=== PATIENT | female | born 1950 | race Caucasian/White ===

== ENCOUNTER 2016-10-10 21:05 | Emergency (ER) | payer OTHER ==
[~2016-10-10] VITALS: Ht 165.1 cm; Wt 68.0 kg
--- NOTE | 2016-10-10 21:55 | ED GI/GU/ABDOMINAL COMPLAINT ---
History of Present Illness General Chief Complaint: General Adult Stated Complaint: S/P COLONOSCOPY, UNABLE TO SWALLOW Source: patient Exam Limitations: no limitations Vital Signs & Intake/Output Vital Signs & Intake/Output Vital Signs Date Time Temp Pulse Resp B/P Pulse O2 O2 Flow FiO2 Ox Delivery Rate 10/10 2328 99.4 83 20 166/81 95 Room Air 10/10 2140 99.7 77 18 159/90 95 Room Air ED Intake and Output 10/11 0000 10/10 1200 Intake Total 40 Output Total Balance 40 Intake, Oral 40 Patient 150 lb Weight Allergies Coded Allergies: No Known Allergies (10/10/16) Reconcile Medications Amoxicillin/Potassium Clav (Augmentin 875-125 Tablet) 875 MG-125 MG TABLET 1 TAB PO BID PNEUMONIA/BRONCHITIS Ondansetron (Zofran Odt) 4 MG TAB.RAPDIS 1 TAB SL TID NAUSEA Triage Note: RECEIVED 66 YO FEMALE S/P COLONOSCOPY TODAY AT [facility]. PT VOMITED DURING PROCEEDURE AND TWICE AFTER. THE PREP DIDN'T AGREE WITH HER. PT REPORTS UNABLE TO SWALLOW, EAT OR DRINK OR BRING UP PHLEM. Triage Nurses Notes Reviewed? yes ? n Is pt currently ? No Onset: Gradual Duration: hour(s): Timing: recent history Quality/Severity: cramping Location: difficulty swallowing Radiation: no radiation Activities at Onset: none Prior Abdominal Problems: none Modifying Factors: Improves With: rest. Associated Symptoms: cough, dysphagia. HPI: 66-year-old woman, in prior good health, presents with dysphagia and cough. She shares that she had a colonoscopy this afternoon and was discharged. She notes that she had some coughing episodes and possible aspiration events around the time the sedating agent was given. She presents here with a cough productive of some phlegm as well as throat pain. "It hurts when I swallow," she says. She has no fever chills nausea vomiting diarrhea. She has no abdominal pain or distention. She is otherwise well. Past History Travel History Traveled to [place] past 21 day No Medical History Any Pertinent Medical History? see below for history Neurological: NONE EENT: NONE Cardiovascular: hypertension Respiratory: NONE Gastrointestinal: GERD Hepatic: NONE Renal: NONE Musculoskeletal: NONE Psychiatric: NONE Endocrine: NONE Blood Disorders: NONE Cancer(s): NONE Surgical History Surgical History: none Psychosocial History What is your primary language [place] Tobacco Use: Never used Family History Hx Contributory? No Review of Systems Review of Systems Constitutional: Reports: no symptoms. EENTM: Reports: no symptoms. Respiratory: Reports: no symptoms. Cardiovascular: Reports: no symptoms. GI: Reports: no symptoms. Genitourinary: Reports: no symptoms. Musculoskeletal: Reports: no symptoms. Skin: Reports: no symptoms. Neurological/Psychological: Reports: no symptoms. Hematologic/Endocrine: Reports: no symptoms. Immunologic/Allergic: Reports: no symptoms. All Other Systems: Reviewed and Negative Physical Exam Physical Exam General Appearance: well developed/nourished, mild distress Head: atraumatic, normal appearance Eyes: Bilateral: normal appearance. Ears, Nose, Throat, Mouth: hearing grossly normal Neck: normal inspection, supple, full range of motion Respiratory: normal breath sounds, chest non-tender, no respiratory distress, quiet respiration, lungs clear Cardiovascular: regular rate/rhythm Gastrointestinal: normal bowel sounds, soft, non-tender, no organomegaly Back: normal inspection Extremities: normal range of motion Neurologic/Psych: no motor/sensory deficits, awake, alert, oriented x 3 Skin: intact, normal color, warm/dry Core Measures ACS in differential dx? No Severe Sepsis Present: No Septic Shock Present: No Progress Differential Diagnosis: pneumonia vs pharyngitis vs other. Plan of Care: Orders Procedure Date/time Status TROPONIN LEVEL 10/10 2113 Complete LIPASE 10/10 2113 Complete HEPATIC FUNCTION PANEL 10/10 2113 Complete CBC WITHOUT DIFFERENTIAL 10/10 2113 Complete BASIC METABOLIC PANEL 10/10 2113 Complete AMYLASE 10/10 2113 Complete EKG 10/10 2113 Active Laboratory Tests 10/10/16 2153: Anion Gap 15, Estimated GFR > 60, BUN/Creatinine Ratio 17.1, Glucose 113 H, Calcium 9.4, Total Bilirubin 1.3, Direct Bilirubin 0.2, AST 22, ALT 33, Alkaline Phosphatase 71, Troponin I 0.02, Total Protein 7.0, Albumin 4.2, Amylase 112 H, Lipase 36, CBC w Diff NO MAN DIFF REQ, RBC 5.09, MCV 88.7, MCH 29.4, RDW 13.1, MPV 8.6, Gran % 93.7 H, Lymphocytes % 2.8 L, Monocytes % 3.4, Eosinophils % 0, Basophils % 0.1, Absolute Granulocytes 15.2 H, Absolute Lymphocytes 0.5 L, Absolute Monocytes 0.6, Absolute Eosinophils 0, Absolute Basophils 0, PUBS MCHC 33.2 Diagnostic Imaging: Viewed by Me: Radiology Read. Discussed w/RAD: Radiology Read. Radiology Impression: SOFT TISSUE NECK... NORMAL. CXR Impression: POSSIBLE PNEUMONIA... FULL REPORT BELOW. Initial ED EKG: normal axis, normal intervals, normal p-waves, normal QRS complex, normal sinus rhythm Comments: PATIENT: GIO ESQUIVEL PRESENT AGE: 66 PATIENT ACCOUNT NO: [id number] : 50 LOCATION: [facility] ORDERING PHYSICIAN: HARLEEN PEARL MD SERVICE DATE: 10/10/16 EXAM TYPE: RAD - XRY-CHEST XRAY, PA AND LATERAL EXAMINATION: XR CHEST CLINICAL INFORMATION: Dyspnea and dysphagia. COMPARISON: None. TECHNIQUE: PA and lateral views of the chest were obtained. FINDINGS: PA and lateral views of the chest demonstrate confluent and patchy airspace opacities within the lingula and left upper lobe. This may reflect left upper lobe pneumonia. The right lung is grossly clear. There are no visible pleural effusions or pneumothoraces. Cardiomediastinal contours are partially obscured secondary to infiltrates within the left upper lobe. There is no visible acute osseous abnormality. Thoracic spine alignment appears to be grossly intact. IMPRESSION: Confluent and patchy airspace opacities within the lingula and left upper lobe. This may represent pneumonia in the appropriate clinical setting. Recommend follow-up PA and lateral chest x-ray following treatment to ensure resolution and to exclude an underlying mass within this region. If the patient's presenting clinical symptoms do not correspond to pneumonia/infection, a contrast-enhanced chest CT may be obtained for further evaluation. DICTATED BY: FORD RODRIGEZ MD DATE/TIME DICTATED:10/10/162246 PLATE STACKER HAND:WAGNER DATE/TIME TRANSCRIBED:10/10/162246 CONFIDENTIAL, DO NOT COPY WITHOUT APPROPRIATE AUTHORIZATION. <Electronically signed in Other Vendor System> SIGNED BY: FORD RODRIGEZ MD 10/10/16 7580 Departure Departure Disposition: HOME OR SELF CARE Condition: Stable Clinical Impression Primary Impression: Pneumonia Secondary Impressions: Dysphagia Referrals: TAMANNA PAULINO MD (PCP/Family) Departure Forms: Customer Survey General Discharge Information Prescriptions: Current Visit Scripts Amoxicillin/Potassium Clav (Augmentin 875-125 Tablet) 1 TAB PO BID #20 TAB Ondansetron (Zofran Odt) 1 TAB SL TID #10 TAB Ref 1 Comments pt feels better after gi cocktail... pneumonia on cxr... pt feels comfortable for discharge with po abx, close follow up.
[2016-10-10 22:07] LABS: ABSOLUTE BASOPHIL COUNT 0 /CUMM (0.0-0.2); ABSOLUTE EOSINOPHIL COUNT 0 /CUMM (0.0-0.7); ABSOLUTE GRANULOCYTE CT 15.2 /CUMM (1.4-6.5); ABSOLUTE LYMPH COUNT 0.5 /CUMM (1.2-3.4); ABSOLUTE MONOCYTE COUNT 0.6 /CUMM (0.10-0.60); BASOPHIL % 0.1 % (0.0-2.0); EOSINOPHIL % 0 % (0-5); GRANULOCYTE % 93.7 % (42.2-75.2); HEMATOCRIT 45.1 % (37-47); MEAN CORPUSCULAR HGB 29.4 PG (27.0-31.0); MEAN CORPUSCULAR HGB CONC 33.2 G/DL (33.0-37.0); MEAN CORPUSCULAR VOLUME 88.7 FL (81.0-99.0); MEAN PLATELET VOLUME 8.6 FL (7.4-10.4); PLATELET COUNT 196 /CUMM (130-400); RBC DISTRIBUTION WIDTH 13.1 % (11.5-14.5); RED BLOOD CELL CT 5.09 /CUMM (4.20-5.40); WHITE BLOOD CELL COUNT 16.3 /CUMM (4.8-10.8)
--- NOTE | 2016-10-10 22:52 | RADIOLOGY REPORT ---
EXAMINATION: XR CHEST CLINICAL INFORMATION: Dyspnea and dysphagia. COMPARISON: None. TECHNIQUE: PA and lateral views of the chest were obtained. FINDINGS: PA and lateral views of the chest demonstrate confluent and patchy airspace opacities within the lingula and left upper lobe. This may reflect left upper lobe pneumonia. The right lung is grossly clear. There are no visible pleural effusions or pneumothoraces. Cardiomediastinal contours are partially obscured secondary to infiltrates within the left upper lobe. There is no visible acute osseous abnormality. Thoracic spine alignment appears to be grossly intact. IMPRESSION: Confluent and patchy airspace opacities within the lingula and left upper lobe. This may represent pneumonia in the appropriate clinical setting. Recommend follow-up PA and lateral chest x-ray following treatment to ensure resolution and to exclude an underlying mass within this region. If the patient's presenting clinical symptoms do not correspond to pneumonia/infection, a contrast-enhanced chest CT may be obtained for further evaluation.
--- NOTE | 2016-10-10 22:53 | RADIOLOGY REPORT ---
EXAMINATION: XR SOFT TISSUE NECK CLINICAL INDICATION: Dysphasia. Dyspnea. COMPARISON: None TECHNIQUE: 2 views of the soft tissue neck were obtained. FINDINGS: Soft tissue films of the neck demonstrate a normal larynx, pharynx and upper trachea. No soft tissue swelling or opaque foreign body is demonstrated. There is degenerative spondylosis of cervical spine with endplate spurs C4-C5 and mild multilevel facet joint arthrosis. IMPRESSION: Unremarkable examination.
[2016-10-10 23:28] VITALS: BP 166/81
[2016-10-10] MEDS ORDERED: AUGMENTIN 875-1 EACH PO (23:35)
[2016-10-10] MEDS ORDERED: ZOFRAN ODT4 M1 SL (23:35)
== END 2016-10-10 23:53 ==
LOC: ERH 21:05
PROVIDERS: Pediatrics
DX: J18.9 Pneumonia, unspecified organism (principal); R13.10 Dysphagia, unspecified
CPT/HCPCS: 70360; 93005; 93010; J3101